=== PATIENT | male | born 1970 | race Caucasian/White ===

== ENCOUNTER 2025-04-01 11:12 | Emergency (ER) | payer BC ==
[~2025-04-01 11:12] MED LIST: Iopamidol 370 76% 100 ML VIAL ONE
[2025-04-01] MEDS ORDERED: Tetracaine 0.5% PF 4 ML BOT ONE (11:54)
[2025-04-01] MEDS ORDERED: Fluorescein Opthalmic Strip ONE (11:54)
[2025-04-01 12:00] LABS: #Basophils 0.1 thou/uL (0.0-0.2); #Eosinophils 0.4 thou/uL (0.0-0.7); #Lymphocytes 1.7 thou/uL (1.20-3.40); #Monocytes 0.5 thou/uL (0.11-0.59); #Neutrophils 4.3 thou/uL (1.40-6.50); %Basophils 0.8 % (0.0-1.0); %Eosinophils 5.1 % (0.0-10.0); %Lymphocytes 24.7 % (21.0-51.0); %Monocytes 6.6 % (0.0-10.0); %Neutrophils 62.7 % (42.0-75.0); Hematocrit 42.8 % (42.0-52.0); Hemoglobin 14.7 g/dL (14.0-18.0); Mean Corpuscular Hemoglobin 30.5 pg (27.0-31.0); Mean Corpuscular Volume 88.7 fl (78.0-98.0); Platelet Count 212 10x3/uL (130-400); Red Blood Cell (RBC) Count 4.83 mill/uL (4.70-6.10); White Blood Cell (WBC) Count 6.8 10x3/uL (4.8-10.8)
[2025-04-01 12:08] LABS: Anion Gap 15 mmol/L (10-20); BUN (Urea Nitrogen) 13 mg/dL (8.4-25.7); Calc. Creatinine Clearance 0 mL/min (70-130); Calcium 9.2 mg/dL (7.8-10.44); Carbon Dioxide 21 mmol/L (22-29); Chloride 105 mmol/L (98-107); Glucose 134 mg/dL (70-105); Potassium 4.2 mmol/L (3.5-5.1); Sodium 137 mmol/L (136-145)
[2025-04-01] MEDS ORDERED: Cefepime 2 GM VIAL ONE (13:15)
== END 2025-04-01 14:00 | disposition home or self-care (01) ==
LOC: NAV ERS 11:12
DX: L03.213 Periorbital cellulitis (principal); H10.9 Unspecified conjunctivitis; I25.2 Old myocardial infarction; F17.210 Nicotine dependence, cigarettes, uncomplicated
CPT/HCPCS: 70487; 80048; 85025; 96365; J0692; Q9967